=== PATIENT | female | born 1990 | race Caucasian/White ===

== ENCOUNTER 2021-03-30 09:18 | Observation (INO) | payer BC, SELFPAY ==
[~2021-03-30] VITALS: Ht 157.5 cm; Wt 69.9 kg
[2021-03-30 09:27] VITALS: BP 100/81
--- NOTE | 2021-03-30 09:27 | NUR ---
Pt tested + for COVID 03/15/21. Pt c/o fever, SOB, Diarrhea, Headache, Body Aches, Vomiting, Chest pain, nonradiating since 03/21/21. Pt currently afebrile. Respirations even and unlabored. O2 saturation 96% on RA. Pain level 04/05. Allergies: NKA Med hx: none Addendum: 03/30/21 at 1737 by [facility] Additional note upon assessment: Pt states fever, chills, nausea, vomiting x 2 episodes yesterday, diarrhea headache, body aches, chest palpitations "My heart feels like it's racing." HR 107, SpO2 98% on room air, RR 36 shallow/rapid. nuclear monitoring technician remains in place. Patient reports Tylenol and Mucinex yesterday without relief. Denies dysuria, dizziness, abdominal pain, back pain, urinary symptoms.
[2021-03-30] MEDS ORDERED: KETOROLAC 30 MG/ML VIAL IVP ONE (10:15)
[2021-03-30] MEDS ORDERED: NACL 0.9% 1,000 ML IV ONE ×2 (10:15→11:30)
[2021-03-30] MEDS ORDERED: ONDANSETRON 4 MG/2 ML VIAL IVP ONE (10:15)
--- NOTE | 2021-03-30 10:26 | NUR ---
PT AMBULATED TO BED 3
[2021-03-30 12:16] LABS: ANION GAP 15.7 (8-16); CARBON DIOXIDE 22.7 mmol/L (21-32); CREATININE 0.6 mg/dL (0.6-1.3); POTASSIUM 3.4 mmol/L (3.5-5.1)
--- NOTE | 2021-03-30 12:50 | NUR ---
patient to CT by nancy
--- NOTE | 2021-03-30 13:00 | NUR ---
Patient returned from CT by nancy
--- NOTE | 2021-03-30 13:05 | NUR ---
Patient states pain 5/10 and denies any nausea. All pt needs met. monitor tech in place. VSS; respirations even/unlabored. Bed locked in lowest position, side rails x 1, call light in reach.
[2021-03-30] MEDS ORDERED: DEXAMETHASONE 10 MG/ML VIAL IVP ONE (13:50)
[2021-03-30] MEDS ORDERED: AZITHROMYCIN 500 MG in DEXTROSE 5% 250 ML IV ONE (13:50)
--- NOTE | 2021-03-30 14:05 | NUR ---
Bedpan provided at bedside. 325mL yellow urine discarded.
[2021-03-30] MEDS ORDERED: cefTRIAXone 1,000 MG VIAL ONE (14:08)
--- NOTE | 2021-03-30 14:30 | NUR ---
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 ALL NEEDS MET AT THIS TIME.
[2021-03-30] MEDS ORDERED: AZIT250T3 PO (14:33)
[2021-03-30] MEDS ORDERED: ACET-10509 PO (14:33)
[2021-03-30] MEDS ORDERED: AZITHROMYCIN 500 MG INJ VIAL IV ONE (14:57)
--- NOTE | 2021-03-30 15:32 | NUR ---
Patient requesting to void. Bedpan, chucks, and wipes provided per request. All pt needs met at this time.
[2021-03-30] MEDS ORDERED: MAGNESIUM OXIDE 400 MG TAB PO PRN (15:55)
[2021-03-30] MEDS ORDERED: MAG SULF 2000 MG/WATER PREMIX 50 ML IV PRN (15:55)
[2021-03-30] MEDS ORDERED: KCL 20 MEQ/WATER INJ PREMIX 200 ML IV PRN (15:55)
[2021-03-30] MEDS ORDERED: ONDANSETRON 4 MG/2 ML VIAL IVP PRN (15:55)
[2021-03-30] MEDS ORDERED: LORazepam 1 MG TAB PO PRN (15:55)
[2021-03-30] MEDS ORDERED: ZOLPIDEM 5 MG TAB PO PRN (15:55)
[2021-03-30] MEDS ORDERED: HYDROcodone/APAP 5/325 MG 1 TAB TAB PO PRN (15:55)
[2021-03-30] MEDS ORDERED: POTASSIUM CHLORIDE 10 MEQ TABER PO PRN (15:55)
[2021-03-30] MEDS ORDERED: ACETAMINOPHEN 325 MG TAB PO PRN (15:55)
--- NOTE | 2021-03-30 16:00 | NUR ---
Patient c/o pain to left AC IV site. Coolness and tenderness noted; IV disconnected.
--- NOTE | 2021-03-30 16:05 | NUR ---
RT at bedside for ABG
--- NOTE | 2021-03-30 16:22 | NUR ---
Dr. Plasencia is evaluating patient at bedside
[2021-03-30] MEDS ORDERED: MORPHINE SULFATE 2 MG/ML SYR IVP PRN (16:35)
--- NOTE | 2021-03-30 16:50 | NUR ---
Bedpan provided per request to void.
--- NOTE | 2021-03-30 16:55 | NUR ---
225mL clear/yellow urine discarded. All pt needs met.
--- NOTE | 2021-03-30 17:00 | NUR ---
Patient states headache and cough. Reports episodes of coughing after using bedpan. PRN orders to be given.
--- NOTE | 2021-03-30 17:15 | NUR ---
SpO2 92% on room air; patient denies any SOB or chest pain at this time. Pt placed onto 2L by NC SpO2 now 95%
--- NOTE | 2021-03-30 17:25 | NUR ---
Bedpan at bedside with towels and chucks per request.
--- NOTE | 2021-03-30 17:30 | NUR ---
250mL clear/yellow urine removed from bedpan and discarded. All pt needs met at this time.
--- NOTE | 2021-03-30 17:30 | NUR ---
PATIENT REPORTS 7/10 SUBSTERNAL CHEST PAIN THAT WORSENS WITH ACTIVITY. STATES PAIN RESOLVED ON ITS OWN BUT UTILIZING BEDPAN CAUSED PAIN TO BE WORSE. STATES TIGHTNESS/PRESSURE FEELING MADE WORSE WHEN COUGHING.
--- NOTE | 2021-03-30 17:46 | NUR ---
Pt states she needs to void. Bedpan and towels provided per request.
--- NOTE | 2021-03-30 18:05 | NUR ---
CONTACTED LAB REGARDING PENDING CBC. CPT STATES TO REDRAW CBC. CBC SAMPLE DRAWN AND HANDED TO CPT ROMAINE AT ER BEDSIDE.
[2021-03-30 18:13] LABS: HEMATOCRIT 34.3 % (36-48); HEMOGLOBIN 11.4 g/dL (12.0-16.0); LYMPHOCYTES # (AUTO) 0.4 K/uL (2.5-16.5); LYMPHOCYTES % (AUTO) 5.7 % (20.5-51.1); MEAN CORPUSCULAR HEMOGLOBIN 27 pg (27-31); MEAN CORPUSCULAR HGB CONC 33 g/dL (33-37); MEAN CORPUSCULAR VOLUME 81.9 fL (80-94); MONOCYTES # (AUTO) 0.3 K/uL (0.8-1.0); MONOCYTES % (AUTO) 4.1 % (1.7-9.3); NEUTROPHILS % (AUTO) 90.2 % (42.2-75.2); PLATELET COUNT (AUTO) 355 K/uL (140-450); RED BLOOD CELL COUNT(AUTO) 4.19 MIL/uL (4.20-5.40); RED CELL DISTRIBUTION WIDTH 13.1 % (11.6-13.7); WHITE BLOOD COUNT (AUTO) 6.7 K/uL (4.8-10.8)
--- NOTE | 2021-03-30 18:48 | NUR ---
CONTACTED MOTHER AT [phone] AND GIVEN STATUS UPDATE.
--- NOTE | 2021-03-30 19:20 | NUR ---
REPORT RECEIVED FROM IVANIA GALLOWAY. ASSUMED CARE AT THIS TIME.
--- NOTE | 2021-03-30 19:20 | NUR ---
Report and transfer of care endorsed to IVANIA Pierre.
--- NOTE | 2021-03-30 19:25 | NUR ---
REPORT GIVEN TO IVANIA BENOIT. TRANSFER OF CARE AT THIS TIME.
--- NOTE | 2021-03-30 19:25 | NUR ---
REPORT RECEIVED FROM IVANIA LEUNG FOR CONTINUITY OF PATIENT CARE. AT THIS TIME.
--- NOTE | 2021-03-30 20:05 | NUR ---
PATIENT LAYING IN BED LOCKED IN LOWEST POSTION W X1 SIDERAIL UP. PATIENT DENIES ANY PAIN, N/V, OR CHILLS. PATIENT REPORTS ONGOING SLIGHT SOB, PATIENT ON 2L NC 02 SAT 98%, 35RR. BREATHING EVEN AND STEADY. CONNECTED TO MONITOR, WILL CONTINUE TO MONITOR.
--- NOTE | 2021-03-30 20:12 | NUR ---
CALLED IVANIA DUMONT TO GIVE REPORT FOR TRANSFER OF PATIENT CARE. NO ANSWER AT THIS TIME. WILL CALL AGAIN.
--- NOTE | 2021-03-30 20:55 | NUR ---
CALLED IVANIA DUMONT TO GIVE REPORT FOR TRANSFER OF PATIENT CARE. NO ANSWER AT THIS TIME. WILL CALL AGAIN.
--- NOTE | 2021-03-30 21:30 | NUR ---
PROVIDED PATIENT W BED CARTER PER REQUEST BY PT FOR URINE.
--- NOTE | 2021-03-30 21:49 | NUR ---
CALLED IVANIA DUMONT TO GIVE REPORT FOR TRANSFER OF PATIENT CARE. NO ANSWER AT THIS TIME. WILL CALL AGAIN.
--- NOTE | 2021-03-30 21:59 | NUR ---
NEW NURSE ASSIGNED. REPORT CALLED TO IVANIA LR FOR TRANSFER OF PATIENT CARE. PER IVANIA LR WILL CALL BACK FOR REPORT IN 1 MIN.
--- NOTE | 2021-03-30 22:22 | NUR ---
Patient will be admitted to care of . Admited to TELE. Will go to room 117. Belongings list completed. BEDSIDE REPORT TO IVANIA LR.
--- NOTE | 2021-03-30 22:40 | NUR ---
Patient transported from ER via gurney alert and oriented x 4. pt tested + for COVID 03/15/21. Cardiac sinus rhythm. Pt c/o fever, SOB, Diarrhea, Headache, Body Aches, Vomiting, Chest pain, nonradiating since 03/21/21. Pt currently afebrile. Respirations even and unlabored. O2 saturation 96% on RA. Pain level 10/10. Rn educated the patient to medical plan of care, medication regimen, fall and safety interventions and ongoing need for patient education. No acute distress noted.
[2021-03-31] VITALS: BP 126/78
[2021-03-31 04:00] VITALS: BP 120/74
[2021-03-31 07:13] LABS: HEMATOCRIT 34.3 % (36-48); HEMOGLOBIN 11.6 g/dL (12.0-16.0); LYMPHOCYTES # (AUTO) 0.6 K/uL (2.5-16.5); LYMPHOCYTES % (AUTO) 14.2 % (20.5-51.1); MEAN CORPUSCULAR HEMOGLOBIN 28 pg (27-31); MEAN CORPUSCULAR HGB CONC 34 g/dL (33-37); MEAN CORPUSCULAR VOLUME 81.8 fL (80-94); MONOCYTES # (AUTO) 0.4 K/uL (0.8-1.0); MONOCYTES % (AUTO) 11.1 % (1.7-9.3); NEUTROPHILS # (AUTO) 2.9 K/uL (1.8-7.7); NEUTROPHILS % (AUTO) 74.7 % (42.2-75.2); PLATELET COUNT (AUTO) 379 K/uL (140-450); RED BLOOD CELL COUNT(AUTO) 4.19 MIL/uL (4.20-5.40); RED CELL DISTRIBUTION WIDTH 13.4 % (11.6-13.7); WHITE BLOOD COUNT (AUTO) 3.9 K/uL (4.8-10.8)
[2021-03-31 07:20] LABS: ALBUMIN 2.5 g/dL (3.4-5.0); ANION GAP 16.9 (8-16); CARBON DIOXIDE 21.9 mmol/L (21-32); CHOL/HDL RATIO 5.5 (1-4.5); CREATININE 0.5 mg/dL (0.6-1.3); MAGNESIUM 2.4 mg/dL (1.8-2.4); POTASSIUM 3.8 mmol/L (3.5-5.1); TOTAL BILIRUBIN 0.3 mg/dL (0.0-1.0)
[2021-03-31 08:00] VITALS: BP 104/60
--- NOTE | 2021-03-31 08:36 | NUR ---
PATIENT HAS BEEN SCREENED AND CATEGORIZED MODERATE NUTRITION RISK. PATIENT WILL BE SEEN WITHIN 3-5 DAYS OF ADMISSION. 04/02/21 04/04/[address]
[2021-03-31] MEDS: AZITHROMYCIN 500 MG in DEXTROSE 5% 250 ML IV SCH ×2 (09:00→10:04)
[2021-03-31] MEDS ORDERED: remdesivir COMMUNICATION ORDER 1 EA MISC MC PRN (09:25)
[2021-03-31] MEDS ORDERED: remdesivir CLINICAL MONITORING 1 EA MISC MC PRN (09:50)
[2021-03-31] MEDS: ENOXAPARIN 40 MG/0.4 ML SYR SUBQ SCH (10:02)
[2021-03-31] MEDS ORDERED: REMDESIVIR. 200 MG in NACL 0.9% 100 ML IV SCH (11:00)
[2021-03-31 12:00] VITALS: BP 104/60
--- NOTE | 2021-03-31 14:15 | NUR ---
DC PLANNING: TWAN SPOKE WITH THE PATIENTS MOTHER SHRAVAN BY PHONE. THE PATIENT LIVES IN A SINGLE STORY HOUSE WITH HER MOTHER AND IS INDEPENDENT IN ALL ACTIVITIES. SHE HAS NO H/O HOME HEALTH OR DME, AND PER HER MOTHER SHE WILL FIND HELP FOR THE PATIENT WHEN SHE RETURNS HME IF NEEDED. ORDER RECEIVED FOR HOME O2, PER DOCUMENTATION PATIENT ON 2L AND SATTING 95%. TWAN SPOKE WITH THE PATIENTS RN ABBI AND ASKED FOR DOCUMENTATION OF O2 SATS ON RA. ABBI STATES THAT THE PATIENT IS SOB WITH EXERTION, TWAN ASKED THAT ANY DOCUMENTATION REGARDING RA SATS AND DESATURATIONS WILL HELP WITH AUTHORIZATION FOR HOME O2. ABBI STATES HE WILL DOCUMENT HER STATUS ON RA. TWAN WILL FOLLOW FOR NEEDS. Addendum: 04/01/21 at 1101 by Komal Bennett CM DC PLANNING: TWAN GAVE REVIEW TO IRVIN AT [facility], ENDORSED PATIENT NEED FOR HOME O2. ORDERS AND DOCUMENTATION FOR O2 FAXED TO IRVIN AND TO [facility]. TWAN SPOKE WITH ROBIN FROM [facility] ([phone]), CONFIRMED THAT SHE HAD THE PHONE NUMBER FOR THE PATIENTS MOTHER. TWAN ALSO LEFT VM FOR THE PATIENTS MOTHER TO EXPLAIN THAT [facility] WILL CALL HER TO ARRANGE DELIVERY OF CONCENTRATOR AND PORTABLE O2 AND THAT SHE WILL NEED TO BRING THE PORTABLE O2 TO THE HOSPITAL WHEN PATIENT IS DC'D. ALSO SPOKE WITH THE ATTENDING DR TUCKER, STATES PATIENT CAN DC ONCE HOME O2 IS IN PLACE. TWAN WILL FOLLOW FOR NEEDS. Addendum: 04/01/21 at 1404 by Komal Bennett CM DC PLANNING: CM SPOKE WITH ROBIN AT [facility], O2 CONCENTRATOR AND PORTABLE SET UP WILL BE DELIVERED AFTER 4:30 TO THE PATIENTS HOME, NO ETA AT THIS TIME. PATIENTS MOTHER WILL BRING THE PORTABLE O2 TO THE HOSPITAL PRIOR TO DC. CM WILL FOLLOW FOR NEEDS.
--- NOTE | 2021-03-31 15:37 | NUR ---
Patient had a walking pulse with this nurse. Patient was on 2 lnc of oxygen and walked to the bathroom and on way back oxygen level dropped from 95 % to 80%. Patient could not tolerate walking without oxygen and procedure to be stopped.
[2021-03-31 16:00] VITALS: BP 107/66
[2021-03-31 20:00] VITALS: BP 115/69
[2021-04-01 00:02] VITALS: BP 121/71
[2021-04-01 04:00] VITALS: BP 123/65
--- NOTE | 2021-04-01 07:38 | NUR ---
Patient awake, alert and oriented, able to verbalize needs. Patient was in prone position. Requires assistance to go to bathroom as she gets tachycardic and oxygen levels go down. Encouraged to cough, deep breath and using incentive spirometer. Safety measures in place, remains in bed and has no further needs.
[2021-04-01 08:00] VITALS: BP 106/66
[2021-04-01 08:48] LABS: BASOPHILS % (AUTO) 0.1 % (0.0-2.0); EOSINOPHILS % (AUTO) 0.1 % (0.0-4.0); HEMATOCRIT 36.4 % (36-48); HEMOGLOBIN 12.1 g/dL (12.0-16.0); LYMPHOCYTES # (AUTO) 1.5 K/uL (2.5-16.5); LYMPHOCYTES % (AUTO) 22.3 % (20.5-51.1); MEAN CORPUSCULAR HEMOGLOBIN 28 pg (27-31); MEAN CORPUSCULAR HGB CONC 33 g/dL (33-37); MEAN CORPUSCULAR VOLUME 82.8 fL (80-94); MONOCYTES % (AUTO) 15.5 % (1.7-9.3); PLATELET COUNT (AUTO) 502 K/uL (140-450); RED CELL DISTRIBUTION WIDTH 13.4 % (11.6-13.7); WHITE BLOOD COUNT (AUTO) 6.5 K/uL (4.8-10.8)
[2021-04-01] MEDS ORDERED: PANTOPRAZOLE 40 MG TABEC PO SCH (09:00)
[2021-04-01] MEDS ORDERED: DEXAMETHASONE 4 MG/ML VIAL IVP SCH (09:00)
[2021-04-01 09:02] LABS: ALBUMIN 2.5 g/dL (3.4-5.0); ANION GAP 11.9 (8-16); CARBON DIOXIDE 28.3 mmol/L (21-32); CREATININE 0.6 mg/dL (0.6-1.3); MAGNESIUM 2.5 mg/dL (1.8-2.4); POTASSIUM 4.2 mmol/L (3.5-5.1); TOTAL BILIRUBIN 0.2 mg/dL (0.0-1.0)
[2021-04-01] MEDS ORDERED: PANT40EC56 PO (10:05)
[2021-04-01] MEDS ORDERED: VITD400 PO (10:05)
[2021-04-01] MEDS ORDERED: ACET-1182 PO (10:05)
[2021-04-01] MEDS ORDERED: AZIT500T PO (10:05)
[2021-04-01] MEDS ORDERED: DEXA4VIA11 PO (10:05)
[2021-04-01] MEDS: ENOXAPARIN 40 MG/0.4 ML SYR SUBQ SCH (10:35)
[2021-04-01] MEDS ORDERED: REMDESIVIR. 100 MG in NACL 0.9% 100 ML IV SCH (11:00)
[2021-04-01 16:00] VITALS: BP 90/60
[2021-04-01 16:51] VITALS: BP 90/64
== END 2021-04-01 20:00 | disposition home or self-care (01) ==
LOC: MED 09:18 → MTU 15:59
PROVIDERS: ADMIT Internal Medicine; ATTEND Internal Medicine
DX: U07.1 COVID-19 (principal); J12.82 Pneumonia due to coronavirus disease 2019; J96.01 Acute respiratory failure with hypoxia; R74.01 Elevation of levels of liver transaminase levels
CPT/HCPCS: 36415; 36600; 71045; 71275; 80048; 80053; 80061; 82728; 82803; 83036; 83605; 83735; 85025; 85379; 87040; 87081; 87426; 93005; 94760; 96361; 96365; 96366; 96367; 96372; 96375; 96376; 97162; 99291; G0378; J0456; J0696; J1100; J1650; J1885; J2270; J2405; J7060; Q9967; U0003